=== PATIENT | female | born 1945 | race Caucasian/White ===

== ENCOUNTER → 2017-12-09 | Outpatient (CLI) | payer MEDICARE, OTHER ==
[~2017-12-09] MED LIST: APRI0.372 PO; CAND4; FLEC1TAB8 PO; LEXA10TA PO; SIMV5TAB32; TOPR25TA2
[2017-12-09 09:20] LABS: BILIRUBIN, URINE NEG (NEG); BLOOD, URINE NEG (NEG); GLUCOSE,URINE NEG (NEG); KETONE, URINE NEG (NEG); NITRITE,URINE NEG (NEG); PH, URINE 5.5 (5.0-8.5); SQUAMOUS EPITHELIAL CELL URINE 2 /hpf (0-5); URINE COLOR YELLOW (YELLW/STRAW); URINE LEUKOCYTE ESTERASE NEG (NEG)
[2017-12-09 09:21] LABS: AUTOMATED NEUTROPHIL # 2.1 TH/MM3 (1.8-7.7); BASOPHIL % 0.7 % (0.0-2.0); EOSINOPHIL # 0.2 TH/MM3 (0-0.4); EOSINOPHIL % 4.8 % (0.0-4.0); HEMATOCRIT 39.4 % (35.0-46.0); HEMOGLOBIN 13.4 GM/DL (11.6-15.3); LYMPH % 29.6 % (9.0-44.0); LYMPHOCYTE # 1.1 TH/MM3 (1.0-4.8); MEAN CELL VOLUME 96.9 FL (80.0-100.0); MEAN PLATELET VOLUME 9.3 FL (7.0-11.0); MONO % 9.5 % (0.0-8.0); MONOCYTE # 0.4 TH/MM3 (0-0.9); NEUT % 55.4 % (16.0-70.0); PLATELET COUNT 151 TH/MM3 (150-450); RED BLOOD COUNT 4.06 MIL/MM3 (4.00-5.30); RED CELL DISTRIBUTION WIDTH 13.6 % (11.6-17.2); WHITE BLOOD COUNT 3.8 TH/MM3 (4.0-11.0)
[2017-12-09 09:32] LABS: INTERNATIONAL NORMALIZED RATIO 1.1 RATIO; PROTHROMBIN TIME - PATIENT 10.7 SEC (9.8-11.6)
[2017-12-09 09:44] LABS: ALBUMIN 3.7 GM/DL (3.4-5.0); AST (GOT) 17 U/L (15-37); BICARBONATE 33.5 MEQ/L (21.0-32.0); BLOOD UREA NITROGEN 14 MG/DL (7-18); CALCIUM 9.1 MG/DL (8.5-10.1); CHLORIDE 103 MEQ/L (98-107); CREATININE 0.66 MG/DL (0.50-1.00); GLOMERULAR FILTRATION RATE 88 ML/MIN (>89); GLUCOSE,FASTING 98 MG/DL (74-99); SODIUM (NA) 140 MEQ/L (136-145)
[2017-12-09 09:46] LABS: WESTERGREN SEDIMENTATION RATE 14 mm/hr (0-30)
[2017-12-09 09:49] LABS: ALKALINE PHOSPHATASE 75 U/L (45-117); ALT (GPT) 17 U/L (10-53); TOTAL BILIRUBIN ADULT 0.4 MG/DL (0.2-1.0); TOTAL PROTEIN 6.9 GM/DL (6.4-8.2)
--- NOTE | 2017-12-09 10:03 | RADRPT ---
EXAM DATE/TIME: 12/09/2017 09:40 [facility] COMPARISON: No previous studies available for comparison. INDICATIONS : Evaluate for pneumothorax, pneumonia, or other communicable disease. Pre-op right knee surgery. MEDICAL HISTORY : None. SURGICAL HISTORY : None. ENCOUNTER: Initial ACUITY: 1 day PAIN SCORE: 0/10 LOCATION: Bilateral chest FINDINGS: Minimal peribronchial thickening left lower lobe. Right lung clear. The heart and pulmonary vascula rity are normal. Mild degenerative changes thoracic spine. CONCLUSION: Minimal peribronchial thickening left lower lobe. Eduard Quiroz MD FACR on December 09, 2017 at 10:01 Board Certified Radiologist. This report was verified electronically.
--- NOTE | 2017-12-10 22:58 | EKG ---
Date Performed: 12/09/2017 Time Performed: 09:06:44 PTAGE: 72 years EKG: Sinus rhythm WITH OCCASIONAL SUPRAVENTRICULAR PREMATURE COMPLEXES BORDERLINE ECG Since the prior tracing, there h as been no significant change DOCTOR: Emerald Garcia Interpretating Date/Time 12/10/2017 22:56:45
== END ==
LOC: CPRE 08:44
PROVIDERS: ATTEND Orthopaedic Surgery
DX: Z01.812 Encounter for preprocedural laboratory examination (principal); Z01.811 Encounter for preprocedural respiratory examination; Z01.810 Encounter for preprocedural cardiovascular examination; M79.609 Pain in unspecified limb; M25.50 Pain in unspecified joint; M17.11 Unilateral primary osteoarthritis, right knee; Z96.60 Presence of unspecified orthopedic joint implant
CPT/HCPCS: 36415; 71046; 80053; 81001; 85025; 85610; 85652; 85730; 93005

== ENCOUNTER 2017-12-25 08:30 | Inpatient (IN) | payer MEDICARE, OTHER ==
[~2017-12-25] VITALS: Ht 162.6 cm; Wt 84.8 kg
[~2017-12-25 08:30] MED LIST changes: -CAND4; -SIMV5TAB32; -TOPR25TA2
[2018-01-22] MEDS ORDERED: ROPIVACAINE PERI-ARTICULAR INJECTION. P-ARTICULR SCH ×5 (10:45)
[2018-01-22] MEDS ORDERED: POVIDONE IODINE 7.5% SCRUB 118 ML BOTTLE TOPICAL SCH (10:45)
[2018-01-22] MEDS ORDERED: VANCOMYCIN 1 GM/200 ML PREMIX IV SCH (10:45)
[2018-01-22] MEDS ORDERED: SODIUM CHLORIDE 0.9% IV SCH ×2 (10:45→16:30)
[2018-01-22] MEDS ORDERED: TRANEXAMIC ACID IV SCH ×2 (10:45→16:30)
[2018-01-22] MEDS ORDERED: CHLORHEXIDINE GLUCONATE 4% SOLN 120 ML BTL TOPICAL SCH (10:45)
[2018-01-22] MEDS ORDERED: INSULIN HUMAN REGULAR 1,000 UNITS/10 ML VIAL SQ PRN (11:00)
[2018-01-22] MEDS ORDERED: SODIUM CHLORID 0.9% 500 ML IV PRN (11:00)
[2018-01-22] MEDS ORDERED: LACTATED RINGER'S 1000 ML IV PRN (11:00)
[2018-01-22] MEDS ORDERED: POVIDONE IODINE 5% (ANTISEPSIS KIT) 4 APPLICATIONS EACH NARE PRN (11:00)
[2018-01-22] MEDS ORDERED: METOPROLOL TARTRATE 25 MG TAB PO PRN (11:00)
[2018-01-22] MEDS ORDERED: CHLORHEXIDINE GLUCONATE 2 % 1 PACK (2 CLOTHS) TOPICAL PRN (11:00)
[2018-01-22] MEDS ORDERED: ceFAZolin 2 GM PREMIX 100 ML IV ONE (11:56)
[2018-01-22] MEDS ORDERED: DEXAMETHASONE SOD PHOS 20 MG/5 ML VIAL IV SCH (12:00)
[2018-01-22] MEDS ORDERED: LIDOCAINE HCL 1% PF 5 ML AMPULE ONE (12:40)
[2018-01-22] MEDS ORDERED: MIDAZOLAM HCL 2 MG/2 ML VIAL ONE (12:40)
[2018-01-22] MEDS ORDERED: BUPIVACAINE LIPOSOME PF 1.3% 20 ML VIAL ONE (12:40)
[2018-01-22] MEDS ORDERED: GENTAMICIN SULFATE 80 MG/2 ML VIAL ONE (12:44)
[2018-01-22] MEDS ORDERED: ceFAZolin 2 GM in NS 100 ML IV SCH (12:45)
[2018-01-22] MEDS ORDERED: ACETAMINOPHEN 1000 MG/100 ML 100 ML IV ONE (12:50)
[2018-01-22] MEDS ORDERED: FAMOTIDINE 20 MG/2 ML VIAL ONE (12:50)
[2018-01-22] MEDS ORDERED: NEOSTIGMINE 5 MG/5 ML SYRINGE IV PUSH ONE (14:38)
[2018-01-22] MEDS ORDERED: ROCURONIUM INJ 50 MG/5 ML SYRINGE IV PUSH ONE (14:38)
[2018-01-22] MEDS ORDERED: GLYCOPYRROLATE 1 MG/5 ML SYRINGE IV PUSH ONE (14:38)
[2018-01-22] MEDS ORDERED: PROPOFOL 200 MG/20 ML AMP IV ONE (14:38)
[2018-01-22] MEDS ORDERED: LIDOCAINE HCL 1% PF 5 ML SYRINGE OTHER ONE (14:38)
[2018-01-22] MEDS ORDERED: LACTATED RINGER'S 1000 ML INJ 1,000 ML IV ONE (14:38)
[2018-01-22] MEDS ORDERED: ePHEDrine/NS 25 MG/5 ML SYRINGE IV ONE (14:38)
[2018-01-22] MEDS ORDERED: ONDANSETRON HCL 4 MG/2 ML VIAL IV ONE (14:38)
--- NOTE | 2018-01-22 14:57 | PD.OP ---
cc: Clinton Crowley MD Operative Report Date of Surgery: Jan 22, 2018 Preoperative Diagnosis: Right knee severe osteoarthritis Postoperative Diagnosis: Same Procedure: Right total knee arthroplasty Anesthesia: Adductor canal block and general Surgeon: Clinton Crowley Highway Construction Inspector(s): MAYA Walker The surgical procedure was assisted by my Advanced Registered Nurse Practitioner. My GUARD RAIL INSTALLER presence was necessary throughout this case for the manipulation and positioning of the surgical extremity. My GUARD RAIL INSTALLER was assisting me throughout the duration of this procedure. The skill set of an Advance Registered Nurse Practitioner was medically necessary to complete this procedure. During the surgical case, the surgical specialist was working at the back table and the Advance Registered Nurse Practitioner was directly assisting me. Operation and Findings: IMPLANTS: DePuy Attune: Patella: size 32. Femur, posterior stabilized size 6 Narrow. Tibia, rotating platform size 4. Tibial insert, rotating platform, posterior stabilized size 5 mm thickness. ESTIMATED BLOOD LOSS: 150 cc TOURNIQUET TIME: 36 minutes at 250 mmHg pressure. JUSTIFICATION FOR PROCEDURE: The patient has end-stage osteoarthritis to the knee. There is an attached conservative measures pathway form in the chart that describes the nonoperative measures that were undertaken prior to consideration of surgical management. The patient understood the risks and benefits of surgical management. See my office notes for further details PROCEDURE: The patient was brought back to the operative theatre. Adequate anesthesia was obtained. The patient received intravenous vancomycin and Ancef. The lower extremity was prepped and draped in the usual sterile fashion.The leg was exsanguinated, the tourniquet was raised. A standard anterior incision was performed followed by medial parapatellar arthrotomy was performed. End-stage arthritis was identified. Osteotomy of the patella was performed. We drilled holes for the patella. We trialed the patella component. We placed an intramedullary guide into the distal femur. We ultimately resected 13 mm off of the distal femur in 5 degrees of valgus. The remnants of the ACL and PCL were resected. Osteotomy of the proximal tibia was performed, resecting 5 mm off of the medial side. This was done with 3 degrees of posterior slope using an extramedullary guide. The distal end of the guide was placed in the mid aspect of the ankle. The femur was sized, and four chamfer cuts were completed in 3 of external rotation. We then cut the central box in the distal femur to replace the PCL. We resected the remnants of the menisci and removed osteophytes off of the femur and tibia. We then trialed the knee. We punched the tibia for the keel, and then used standard technique to cement in components. Excess cement was removed. We trialed the knee again and the final polyethylene thickness was chosen to provide extension to 0 degrees, and flexion of 140 degrees to gravity. The ligaments were appropriately balanced. Lateral release was necessary to obtain excellent patellofemoral tracking. The tourniquet was released and adequate hemostasis was obtained. An intra- articular injection of a ropivacaine cocktail was injected. The posterior knee was inspected for excess cement, which was removed. The final polyethylene was put into position after thorough irrigation. We then closed deep fascia with a #2 Stratafix followed by skin with 2-0 Vicryl followed by Dermabond mesh dressing. Postop plan is to weight-bear as tolerated. DVT prophylaxis will be performed with SCDira, ALAN ellis, early mobilization, and Lovenox followed by aspirin. Clinton Crowley MD Jan 22, 2018 14:57
[2018-01-22] MEDS ORDERED: ONDANSETRON HCL 4 MG/2 ML VIAL IVP PRN (15:00)
[2018-01-22] MEDS ORDERED: diphenhydrAMINE HCL 50 MG/ML VIAL IV PUSH PRN (15:00)
[2018-01-22] MEDS ORDERED: MAGNESIUM HYDROXIDE SUSP 30 ML CUP PO PRN (15:00)
[2018-01-22] MEDS: SODIUM CHLOR 0.9% 1000 ML INJ 1,000 ML IV SCH (15:00)
[2018-01-22] MEDS ORDERED: ALUMINUM/MAGNESIUM/SIMETH 30 ML CUP PO PRN (15:00)
[2018-01-22] MEDS ORDERED: NALOXONE HCL 0.4 MG/ML AMP IV PUSH PRN (15:00)
[2018-01-22] MEDS ORDERED: BISACODYL 10 MG SUPP RECTAL PRN (15:00)
[2018-01-22] MEDS ORDERED: ACETAMINOPHEN/HYDROcodone 325 MG/5 MG TAB PO PRN (15:00)
[2018-01-22] MEDS ORDERED: ZOLPIDEM TARTRATE 5 MG TAB PO PRN (15:00)
[2018-01-22] MEDS ORDERED: Post-op Orders (for Pharmacy) XX ONE (15:00)
[2018-01-22] MEDS ORDERED: *morphine SULFATE 4 MG/ML PERIprocedure ONLY ONE ×3 (15:58→17:50)
[2018-01-22] MEDS ORDERED: PILL SPLITTER OTHER PRN (16:15)
[2018-01-22] MEDS ORDERED: MORPHINE SULFATE 2 MG/ML SYRINGE IV PUSH PRN (16:15)
[2018-01-22] MEDS ORDERED: DO NOT ADM ANY ANTICOAGULANT DRUGS PRN (16:30)
--- NOTE | 2018-01-22 16:43 | RADRPT ---
EXAM DATE/TIME: 01/22/2018 16:38 [facility] COMPARISON: No previous studies available for comparison. INDICATIONS : Post op right knee replacement MEDICAL HISTORY : None. SURGICAL HISTORY : None. ENCOUNTER: Initial ACUITY: 1 day PAIN SCORE: 0/10 LOCATION: Right knee FINDINGS: The patient is status post right total knee replacement. The prosthesis is in good position. There is no fracture or dislocation. CONCLUSION: Status post right total knee replacement. Gagan Haynes MD on January 22, 2018 at 16:39 Board Certified Radiologist. This report was verified electronically.
--- NOTE | 2018-01-22 17:50 | HHI.DCPOC ---
Discharge Care Plan Diagnosis: (1) Primary localized osteoarthrosis, lower leg (2) Status post total knee replacement, right Your Health Problems Are: Difficulty with ADL Goals to Promote Your Health * To prevent worsening of your condition and complications * To maintain your health at the optimal level Directions to Meet Your Goals Take your medications as prescribed Follow your dietary instruction Follow activity as directed Keep your appointments as scheduled Take your immunizations and boosters as scheduled If your symptoms worsen call your PCP, if no PCP go to Urgent Care Center or Emergency Room Smoking is Dangerous to Your Health. Avoid second hand smoke Call the 24-hour hour crisis hotline for domestic abuse at Stalin Patel Jan 22, 2018 17:50
--- NOTE | 2018-01-22 17:50 | HHI.FF ---
Face to Face Verification Diagnosis: (1) Primary localized osteoarthrosis, lower leg (2) Status post total knee replacement, right Physical Therapy Gait training, Transfer training, bed to chair Knee: Total knee Right LE Weight Bearing: WB as tolerated Right LE Range of Motion: Active ROM Nursing Nursing: Jess teaching Dressing Changes: Do not change dressing Additional Instructions First dressing change in the office. I have seen patient Lynne Nunez on 01/22/18. My clinical findings support the need for the requested home health care services because: Limited ability to care for self High risk of falls I certify that my clinical findings support that this patient is homebound because: Post-op weakness Unsteady gait/balance Stalin Patel Jan 22, 2018 17:50
[2018-01-22] MEDS ORDERED: CPMMACHINE (17:52)
[2018-01-22] MEDS ORDERED: WALKER WHEELS/F1 MIS (17:52)
[2018-01-22] MEDS ORDERED: COMMODE 3-IN-11 MIS (17:52)
[2018-01-22 19:56] VITALS: BP 150/67; PULSE 66; RESP 16; TEMP 97.5; O2SAT 98
[2018-01-22] MEDS: FLECAINIDE ACETATE 100 MG TAB PO SCH (20:53)
[2018-01-22] MEDS: ACETAMINOPHEN/HYDROcodone 325 MG/5 MG TAB PO PRN (23:31)
[2018-01-23] VITALS: BP 105/58; PULSE 64; RESP 18; TEMP 98.2; O2SAT 96
[2018-01-23] MEDS: SODIUM CHLOR 0.9% 1000 ML INJ 1,000 ML IV SCH (01:00)
[2018-01-23 04:00] VITALS: BP 120/60; PULSE 66; RESP 18; TEMP 97.2; O2SAT 95
[2018-01-23] MEDS: ACETAMINOPHEN/HYDROcodone 325 MG/5 MG TAB PO PRN ×3 (05:04→12:38)
[2018-01-23 05:26] LABS: HEMATOCRIT 32.4 % (35.0-46.0); HEMOGLOBIN 11.1 GM/DL (11.6-15.3); MEAN CELL VOLUME 96.3 FL (80.0-100.0); MEAN CORPUSCULAR HEMOGLOBIN 32.9 PG (27.0-34.0); MEAN CORPUSCULAR HGB CONC 34.1 % (32.0-36.0); MEAN PLATELET VOLUME 9.9 FL (7.0-11.0); PLATELET COUNT 135 TH/MM3 (150-450); RED BLOOD COUNT 3.36 MIL/MM3 (4.00-5.30); RED CELL DISTRIBUTION WIDTH 13.3 % (11.6-17.2); WHITE BLOOD COUNT 7.8 TH/MM3 (4.0-11.0)
[2018-01-23] MEDS ORDERED: DEXAMETHASONE SOD PHOS 20 MG/5 ML VIAL IV ONE (07:45)
[2018-01-23 08:00] VITALS: BP 137/57; PULSE 67; RESP 17; TEMP 98.4; O2SAT 94
[2018-01-23] MEDS: FLECAINIDE ACETATE 100 MG TAB PO SCH (09:00)
[2018-01-23] MEDS ORDERED: ESCITALOPRAM OXALATE 10 MG TAB PO SCH (09:00)
[2018-01-23 12:00] VITALS: BP 135/65; PULSE 74; RESP 17; TEMP 98.7; O2SAT 94
--- NOTE | 2018-01-23 12:46 | PD.ORT.PN ---
Subjective Post Op Day #: 1 Subjective Remarks Patient is dressed and sitting on the side of the bed. Patient reports minimal pain to the right knee. Patient requesting to go home today with home health. Objective Vitals Vital Signs Date Time Temp Pulse Resp B/P (MAP) Pulse Ox O2 Delivery O2 Flow Rate FiO2 01/23/18 12:00 98.7 74 17 135/65 (88) 94 01/23/18 10:03 20 01/23/18 08:00 98.4 67 17 137/57 (83) 94 01/23/18 04:00 97.2 66 18 120/60 (80) 95 01/23/18 00:00 98.2 64 18 105/58 (74) 96 01/22/18 19:56 97.5 66 16 150/67 (94) 98 01/22/18 17:00 73 16 140/60 (86) 98 01/22/18 16:30 65 16 139/63 (88) 98 Nasal Cannula 2 01/22/18 16:00 67 16 157/68 (97) 100 Nasal Cannula 2 01/22/18 15:45 69 16 160/69 (99) 99 Nasal Cannula 2 01/22/18 15:30 80 16 164/73 (103) 99 Nasal Cannula 2 01/22/18 15:23 97.6 88 16 164/73 (103) 100 Nasal Cannula 2 I/O 01/22/18 01/22/18 01/22/18 01/23/18 01/23/18 01/23/18 07:00 15:00 23:00 07:00 15:00 23:00 Intake Total 1400 ml Output Total 150 ml 750 ml Balance 1250 ml -750 ml Intake IV Total 1400 ml Output Urine Total 750 ml Estimated Blood Loss 150 ml Result Diagram: 01/23/18 0430 Imaging Last 24 hours Impressions Knee X-Ray 01/22/18 5549 Signed Impressions: Service Date/Time: Monday, January 22, 2018 16:38 - CONCLUSION: Status post right total knee replacement. Gagan Haynes MD Procedures Right TKA Objective Remarks Dressing is C/D/I. EHL/TA/G intact. 2+ pedal pulse. Calf is soft and nontender. SILT distally. Assessment & Plan Ortho Post Op Day #: 1 Problem List: Assessment and Plan POD #1: Right TKA 1. WBAT RLE 2. Lovenox for DVT followed by ASA for prophylaxis 3. Ice to the right knee PRN 4. Stable per ortho for discharge today 5. F/U in the office with Dr. Crowley or MAYA Gomez as previously scheduled. Stalin Patel Jan 23, 2018 12:46
[2018-01-23] MEDS ORDERED: ENOXAPARIN SODIUM 40 MG/0.4 ML SYRINGE SQ SCH (15:00)
[2018-01-23] MEDS ORDERED: DOCUSATE SODIUM 100 MG CAP PO SCH (21:00)
[2018-01-23] MEDS ORDERED: MULTIVITAMINS/MINERALS THERAPEUTIC TAB PO SCH (21:00)
--- NOTE | 2018-01-27 16:28 | HHI.DS ---
Discharge Summary Admission Date Jan 22, 2018 at 10:07 Discharge Date: Jan 23, 2018 Admitting Diagnosis Primary localized osteoarthritis, lower leg Status post total knee replacement, RIGHT Diagnosis: (1) Primary localized osteoarthrosis, lower leg Diagnosis: Principal ICD Codes: M17.10 - Unilateral primary osteoarthritis, unspecified knee (2) Status post total knee replacement, right Diagnosis: Principal ICD Codes: Z96.651 - Presence of right artificial knee joint Procedures Right TKA Brief History This is a 72 year old female patient with severe osteoarthritis of the RIGHT knee CBC/BMP: 01/23/18 0430 PE at Discharge Dressing is C/D/I. EHL/TA/G intact. 2+ pedal pulse. Calf is soft and nontender. SILT distally. Hospital Course The patient was admitted to the hospital for severe osteoarthritis of the RIGHT knee to have a RIGHT total knee arthroplasty. The patient's surgery went well and no complications. The patient is weightbearing as tolerated on the RIGHT lower extremity. The patient is on a regular diet. The patient was placed on Lovenox followed by aspirin for DVT prophylaxis. The patient was discharged home with home health and will follow up in the office as previously scheduled with Dr. Crowley or MAYA Gomez. Pt Condition on Discharge: Stable Discharge Disposition: Disch w/ Home Health Serv Discharge Instructions Diet Instructions: As Tolerated, No Restrictions Activities You Can Perform: Weight Bearing as Randal Activities to Avoid: Strenuous Activity Follow up Referrals: Orthopedics with Clinton Crowley MD New Medications: Commode 3-in-1 (Commode 3-in-1) 1 Mis Mis EA .XX DIRECTED, #1 0 Refills CPM-Continuous Passive Motion Machine (CPM-Continuous Passive Motion Machine) 1 Ea Device EA .XX DIRECTED, #1 0 Refills Walker with Front Wheels (Walker with Front Wheels) 1 Mis Mis EA .XX DIRECTED, #1 0 Refills Continued Medications: Escitalopram (Lexapro) 10 Mg Tab 10 MG PO DAILY, #30 TAB 0 Refills Flecainide (Flecainide) 50 Mg Tab Unknown Dose PO BID for Regulate Heart Beat, #60 TAB 0 Refills Discontinued Medications: Mesalamine ER 24 HR (Apriso) 0.375 Gm Caper Unknown Dose PO DAILY for Ulcerative colitis, CAP 0 Refills Stalin Patel Jan 27, 2018 16:28
== END 2018-01-23 14:39 | disposition home health service (06) | DRG 470 ==
LOC: HSDI 01-22 10:07 → N06A 01-22 18:34
PROVIDERS: ADMIT Orthopaedic Surgery; ATTEND Orthopaedic Surgery
PROC: 3E0T3BZ Introduction of Anesthetic Agent into Peripheral Nerves and Plexi, Percutaneous Approach (ICD-10-PCS; 2018-01-22)
PROC: 0SRC0J9 Replacement of Right Knee Joint with Synthetic Substitute, Cemented, Open Approach (ICD-10-PCS; principal; 2018-01-22 13:07)
DX: M17.11 Unilateral primary osteoarthritis, right knee (principal); E78.5 Hyperlipidemia, unspecified; M25.761 Osteophyte, right knee; F41.9 Anxiety disorder, unspecified; Z88.0 Allergy status to penicillin; Z98.84 Bariatric surgery status
CPT/HCPCS: 73560; 85027; 86850; 86900; 86901; 94150; C1776; C9290; J0131; J0690; J0735; J1100; J1580; J1650; J1885; J2250; J2270; J2405; J2710; J2795; J3010; J3370; J7030; J7120; L1830